=== PATIENT | female | born 1990 | race Caucasian/White ===

== ENCOUNTER 2020-08-21 13:38 | Emergency (ER) | payer OTHER ==
[~2020-08-21] VITALS: Ht 162.6 cm; Wt 73.9 kg
[2020-08-21 14:04] VITALS: Ht 162.6 cm; Wt 73.9 kg
[2020-08-21 15:43] VITALS: BP 134/73
== END 2020-08-21 15:43 | disposition home or self-care (01) ==
LOC: ED 13:38
DX: S52.021A Displaced fracture of olecranon process without intraarticular extension of right ulna, initial encounter for closed fracture (principal); S60.211A Contusion of right wrist, initial encounter; S70.12XA Contusion of left thigh, initial encounter; S50.312A Abrasion of left elbow, initial encounter; R68.84 Jaw pain; V49.49XA Driver injured in collision with other motor vehicles in traffic accident, initial encounter; Y93.I9 Activity, other involving external motion; Y92.488 Other paved roadways as the place of occurrence of the external cause; Y99.8 Other external cause status